=== PATIENT | male | born 1990 | race Caucasian/White ===

== ENCOUNTER 2023-01-24 21:19 | Emergency (ER) | payer MEDICAID ==
[2023-01-24] MEDS ORDERED: methylPREDNISolone Sodium Succinate 40 MG/1 ML SDV IM ONE (22:08)
[2023-01-24] MEDS ORDERED: Cyclobenzaprine 10 MG Tab PO ONE (22:08)
[2023-01-24] MEDS ORDERED: Ketorolac 30 MG/ML SDV IM ONE (22:08)
== END 2023-01-24 22:28 | disposition home or self-care (01) ==
LOC: JD.ED 21:19
DX: M54.50 Low back pain, unspecified (principal)
CPT/HCPCS: 96372; 99283; A9270; J1885; J2920